=== PATIENT | male | born 1955 | race Caucasian/White ===

== ENCOUNTER → 2019-10-19 | Outpatient (CLI) | payer OTHER ==
[~2019-10-19] MED LIST: OMNIPAQUE 350 MG/ML, 100ML BOTTLE ONE
[2019-10-19 12:26] LABS: CREATININE 1.02 mg/dL (0.7-1.3)
== END | disposition home or self-care (01) ==
LOC: RAD 11:24
PROVIDERS: ATTEND Urology
DX: C61 Malignant neoplasm of prostate (principal)
CPT/HCPCS: 36415; 74177; 78306; 82565; A9503; Q9967